=== PATIENT | male | born 1975 | race African-American/Black ===

== ENCOUNTER 2021-09-09 01:17 | Emergency (ER) | payer BC, OTHER ==
[~2021-09-09] VITALS: Ht 193 cm; Wt 204.0 kg
[2021-09-09] MEDS ORDERED: BACITRACIN ZINC OINT UDPKT TOP ONE (03:00)
[2021-09-09] MEDS ORDERED: LIDOCAINE HCL 1% 20ML VIAL (Pyxis) INJ INFIL STA (03:28)
[2021-09-09 04:00] VITALS: BP 133/76
[2021-09-09] MEDS ORDERED: NAPR-681 PO (04:02)
[2021-09-09] MEDS ORDERED: DOXY100T28 PO (04:02)
== END 2021-09-09 04:09 | disposition home or self-care (01) ==
LOC: ER 01:17
DX: M25.562 Pain in left knee (principal); M25.462 Effusion, left knee
CPT/HCPCS: 73564; 99283; J3490